=== PATIENT | male | born 1985 ===

== ENCOUNTER 2023-04-12 10:28 | Emergency (ER) | payer OTHER ==
[~2023-04-12] VITALS: Ht 177.8 cm; Wt 86.4 kg
[2023-04-12 10:34] VITALS: BP 124/79
== END 2023-04-12 14:37 | disposition left against medical advice (07) ==
LOC: ER 10:29
DX: F29 Unspecified psychosis not due to a substance or known physiological condition (principal); Z53.21 Procedure and treatment not carried out due to patient leaving prior to being seen by health care provider
CPT/HCPCS: 99281

== ENCOUNTER 2023-04-13 12:08 | Emergency (ER) | payer OTHER ==
[~2023-04-13] VITALS: Ht 177.8 cm; Wt 88.6 kg
[2023-04-13 12:43] LABS: BASOPHILS # (AUTO) 0.1 X10'3 (0-0.2); BASOPHILS % (AUTO) 0.6 % (0-1); EOSINOPHILS % (AUTO) 0.3 % (0-6); HEMATOCRIT 42.4 % (42.0-52.0); LYMPHOCYTES # (AUTO) 1.8 X10'3 (1.1-4.8); LYMPHOCYTES % (AUTO) 18.7 % (21-51); MEAN CORPUSCULAR HEMOGLOBIN 30.9 PG (27.0-31.0); MEAN CORPUSCULAR HGB CONC 33.1 g/dL (33.0-36.5); MEAN CORPUSCULAR VOLUME 93.4 FL (78-98); MEAN PLATELET VOLUME 6.5 FL (7.4-10.4); MONOCYTES # (AUTO) 0.7 X10'3 (0-0.9); MONOCYTES % (AUTO) 7.5 % (2-12); NEUTROPHILS # (AUTO) 7.2 X10'3 (1.8-7.7); NEUTROPHILS % (AUTO) 72.9 % (42-75); PLATELET COUNT 414 X10'3 (140-440); RED BLOOD COUNT 4.54 X10'6 (4.70-6.10); WHITE BLOOD COUNT 9.8 X10'3 (4.5-11.0)
[2023-04-13 12:57] LABS: ALANINE AMINOTRANSFERASE 22 U/L (12-78); ALBUMIN/GLOBULIN RATIO 0.9 (1.1-1.5); ALKALINE PHOSPHATASE 86 IU/L (46-116); ANION GAP 12 (8-16); ASPARTATE AMINO TRANSFERASE 31 U/L (10-37); BILIRUBIN,TOTAL 0.4 MG/DL (0.1-1.0); BLOOD UREA NITROGEN 10 MG/DL (7-18); BUN/CREATININE RATIO 15.9 (10.0-20.0); CALCIUM 8.4 MG/DL (8.5-10.1); CHLORIDE 107 MMOL/L (99-107); CREATININE 0.63 MG/DL (0.60-1.10); GLUCOSE 85 MG/DL (70-104); POTASSIUM 3.1 MMOL/L (3.5-5.1); SODIUM 140 MMOL/L (135-145); TOTAL CARBON DIOXIDE 20.9 MMOL/L (24-32); TOTAL PROTEIN 6.3 G/DL (6.4-8.2); eGFR > 90 ML/MIN
[2023-04-13 13:05] LABS: ETHANOL 0.134 GM/DL (0.0-0.010)
--- NOTE | 2023-04-13 13:25 | NUR ---
PT BG 70. RN PROVIDED LUNCH TRAY FOR PT.
[2023-04-13] MEDS ORDERED: POTASSIUM BICARB 20meq eff tab 20 MEQ TABLET.EFF PO STA (14:13)
--- NOTE | 2023-04-13 14:14 | NUR ---
RN NOTIFIED JACKELYN RM THAT PT K IS 3.1. PER JACKELYN SHE WILL PLACE ORDS.
[2023-04-13 14:49] LABS: CLARITY,URINE CLOUDY (Clear); COLOR,URINE YELLOW (Yellow); GLUCOSE, URINE NEGATIVE (Neg); KETONES,URINE 15 mg/dl (Neg); LEUKOCYTE ESTERASE ,URINE NEGATIVE (Neg); NITRITES, URINE NEGATIVE (Neg); OCCULT BLOOD,URINE NEGATIVE (Neg); PROTEIN,URINE NEGATIVE (Neg); UROBILINOGEN,URINE 0.2 E.U/dL (0.2-1.0)
[2023-04-13 14:52] LABS: URINE AMPHETAMINE SCREEN NEGATIVE (Neg); URINE BARBITUATE SCREEN NEGATIVE (Neg); URINE BENZODIAZEPINES SCREEN NEGATIVE (Neg); URINE CANNABINOID SCREEN POSITIVE (Neg); URINE COCAINE SCREEN NEGATIVE (Neg); URINE METHADONE SCREEN NEGATIVE (Neg); URINE OPIATE SCREEN NEGATIVE (Neg); URINE PHENCYCLIDINE SCREEN NEGATIVE (Neg)
[2023-04-13 15:04] LABS: CAL OXALATE CRYSTALS 4+ /HPF (NEGATIVE); MUCUS STRANDS MANY /LPF (Neg); SQUAMOUS EPITHELIAL CELL,UR FEW /LPF (FEW); UA COLLECTION TYPE VOIDED
[2023-04-13 15:05] LABS: BACTERIA,URINE FEW /HPF (Neg); HYALINE CASTS 0-3 /LPF (NEGATIVE); RBC,URINE 0-2 /HPF (0-2); WBC,URINE 0-4 /HPF (0-4)
--- NOTE | 2023-04-13 16:41 | NUR ---
Patient complaining of jittery. Patient also appears anxious. Blood sugar when checked was 105 mg/dl. I talked to ALISHA Jacobs about this and my concern that patient probably going through alcohol withdrawal at this time. She said she willl review the chart
--- NOTE | 2023-04-13 17:28 | NUR ---
Patient eating snack at this time. Patient reported feeling better and not jittery anymore at this time.
--- NOTE | 2023-04-13 18:30 | NUR ---
Assumed care of patient. Pt sitting up and eating dinner at change of shift.
--- NOTE | 2023-04-13 18:55 | NUR ---
Pt states he is here because he has been having suicidal thoughts with plan to run in traffic. Pt states he is able to be safe while he is here but doesnt know what he will do if he leaves.
--- NOTE | 2023-04-13 21:00 | NUR ---
Pt up requesting more water and returned to bed.
--- NOTE | 2023-04-13 22:00 | NUR ---
Pt appears to be sleeping on right side rr even and unlabored.
--- NOTE | 2023-04-14 01:39 | NUR ---
Pt is asleep, laying on his stomach rr even an unlabored
--- NOTE | 2023-04-14 03:46 | NUR ---
Pt is laying on his back asleep. RR 16
--- NOTE | 2023-04-14 04:23 | NUR ---
Pt is awake requesting snacks and more water and blankets. Pt provided with all and is sitting quietly
--- NOTE | 2023-04-14 04:51 | NUR ---
pt is laying in bed eyes closed rr 16
--- NOTE | 2023-04-14 06:36 | NUR ---
Patient ambulatory to BR, steady gait. No distress observed. Continue to monitor.
[2023-04-14] MEDS ORDERED: LORazepam 1 MG tablet PO ONE ×2 (07:55→14:30)
--- NOTE | 2023-04-14 08:08 | NUR ---
Patient appears very anxious. Patient given 2 mg Ativan and is eating breakfast. Continue to monitor.
--- NOTE | 2023-04-14 10:11 | NUR ---
Patient feeling better and reclining in bed awake. No distress observed. Continue to monitor.
--- NOTE | 2023-04-14 12:12 | NUR ---
Patient eating lunch. No distress observed. Continue to monitor.
--- NOTE | 2023-04-14 12:17 | NUR ---
FERNIE, Kacie, evaluating patient. No distress observed. Continue to monitor.
--- NOTE | 2023-04-14 13:39 | NUR ---
[facility] of his 5150 hold. Patient's friend does not believe it is a good plan for him and is afraid for him. Continue to monitor.
--- NOTE | 2023-04-14 15:22 | NUR ---
Patient laying in bed awake. No distress observed at this time. Continue to monitor.
--- NOTE | 2023-04-14 17:35 | NUR ---
Patient eating dinner. No distress observed. Continue to monitor.
[2023-04-14] MEDS ORDERED: TRAZ-256 PO (17:43)
[2023-04-14] MEDS ORDERED: ZOLM5TAB9 PO (17:43)
[2023-04-14] MEDS ORDERED: TELM1TAB4 PO (17:43)
[2023-04-14] MEDS ORDERED: IBUP-1984 PO (17:43)
[2023-04-14] MEDS ORDERED: LOSA-416 PO (17:43)
[2023-04-14] MEDS ORDERED: PROP40TA72 PO (17:43)
[2023-04-14] MEDS ORDERED: SUMAtriptan 25 MG tablet PO PRN ×2 (18:10→18:28)
[2023-04-14] MEDS: hydrOXYzine 25 MG tablet PO PRN (18:36)
[2023-04-14] MEDS: ibuprofen tablet 400 MG TABLET PO PRN (19:06)
--- NOTE | 2023-04-14 20:07 | NUR ---
Pt calm and cooperative, resting in bed. Denies MH symptoms at this time, requests motrin for chronic leg pain 04/11. Ibuprofen given with good effect.
[2023-04-14] MEDS ORDERED: traZODone 50mg tablet PO SCH (21:00)
[2023-04-14] MEDS ORDERED: potassium Cl 20 mEq SR tablet PO STA (22:57)
--- NOTE | 2023-04-14 23:05 | NUR ---
K+ level 3.1, KDUR replacement given 40meq.
--- NOTE | 2023-04-15 00:48 | NUR ---
Alisha PARSONS called, nurse to nurse done.
--- NOTE | 2023-04-15 00:53 | NUR ---
Alisha requesting TeraFirrma PCR test.
--- NOTE | 2023-04-15 02:44 | NUR ---
Pt appears to be sleeping.
--- NOTE | 2023-04-15 05:25 | NUR ---
pt appears to be sleeping.
[2023-04-15] MEDS: hydrOXYzine 25 MG tablet PO PRN ×2 (06:22→12:57)
[2023-04-15] MEDS: ibuprofen tablet 400 MG TABLET PO PRN ×2 (07:55→16:59)
[2023-04-15] MEDS ORDERED: propranolol 40mg tablet PO SCH (08:00)
[2023-04-15] MEDS ORDERED: losartan 50mg tablet PO SCH (08:00)
--- NOTE | 2023-04-15 10:23 | NUR ---
[facility] called and Tad requesting current VS, PCR results, and K+ level.
[2023-04-15 10:31] VITALS: BP 134/99
[2023-04-15] MEDS ORDERED: nicotine 21mg patch - 24 hr TD ONE (10:40)
--- NOTE | 2023-04-15 15:13 | NUR ---
CIWA score form completed. Score 3. Alisha PARSONS requesting. Form faxed to [facility].
--- NOTE | 2023-04-15 15:15 | NUR ---
Alisha accepted pt.
[2023-04-15] MEDS ORDERED: LORazepam 1 MG tablet PO ONE (16:55)
== END 2023-04-15 17:11 | disposition still patient (30) ==
LOC: ER 12:08
DX: R45.851 Suicidal ideations (principal); Z20.822 Contact with and (suspected) exposure to COVID-19; F10.129 Alcohol abuse with intoxication, unspecified; Z88.6 Allergy status to analgesic agent; Y90.9 Presence of alcohol in blood, level not specified
CPT/HCPCS: 36415; 80053; 80305; 80320; 81001; 82948; 84132; 84443; 85025; 87635; 87811; 99285; C9803; Q0177

== ENCOUNTER 2023-08-04 18:53 | Emergency (ER) | payer OTHER ==
[~2023-08-04] VITALS: Ht 180.3 cm; Wt 88.6 kg
[~2023-08-04 18:53] MED LIST: IBUP-1984 PO; LOSA-416 PO; PROP40TA72 PO; TRAZ-256 PO; ZOLM5TAB9 PO
--- NOTE | 2023-08-04 19:27 | NUR ---
AWARE OF NUMBNESS TO L SIDE.
[2023-08-04 19:30] LABS: BASOPHILS # (AUTO) 0.1 X10'3 (0-0.2); BASOPHILS % (AUTO) 1.1 % (0-1); EOSINOPHILS # (AUTO) 0.1 X10'3 (0-0.9); EOSINOPHILS % (AUTO) 1.5 % (0-6); HEMATOCRIT 39.1 % (42.0-52.0); HEMOGLOBIN 12.7 g/dl (14.0-17.9); LYMPHOCYTES # (AUTO) 2.2 X10'3 (1.1-4.8); LYMPHOCYTES % (AUTO) 26.4 % (21-51); MEAN CORPUSCULAR HEMOGLOBIN 30.4 PG (27.0-31.0); MEAN CORPUSCULAR HGB CONC 32.5 g/dL (33.0-36.5); MEAN CORPUSCULAR VOLUME 93.4 FL (78-98); MEAN PLATELET VOLUME 7.4 FL (7.4-10.4); MONOCYTES # (AUTO) 0.7 X10'3 (0-0.9); MONOCYTES % (AUTO) 8.2 % (2-12); NEUTROPHILS # (AUTO) 5.3 X10'3 (1.8-7.7); NEUTROPHILS % (AUTO) 62.8 % (42-75); PLATELET COUNT 509 X10'3 (140-440); RED BLOOD COUNT 4.19 X10'6 (4.70-6.10); WHITE BLOOD COUNT 8.5 X10'3 (4.5-11.0)
[2023-08-04 19:46] LABS: ALANINE AMINOTRANSFERASE 95 U/L (12-78); ALBUMIN/GLOBULIN RATIO 0.8 (1.1-1.5); ALKALINE PHOSPHATASE 135 IU/L (46-116); ANION GAP 8 (8-16); ASPARTATE AMINO TRANSFERASE 126 U/L (10-37); BILIRUBIN,TOTAL 0.4 MG/DL (0.1-1.0); BLOOD UREA NITROGEN 4 MG/DL (7-18); BUN/CREATININE RATIO 5.8 (10.0-20.0); CALCIUM 8.8 MG/DL (8.5-10.1); CHLORIDE 107 MMOL/L (99-107); CREATININE 0.69 MG/DL (0.60-1.10); GLUCOSE 106 MG/DL (70-104); POTASSIUM 3.1 MMOL/L (3.5-5.1); SODIUM 142 MMOL/L (135-145); TOTAL CARBON DIOXIDE 26.7 MMOL/L (24-32); TOTAL PROTEIN 6.9 G/DL (6.4-8.2); eCRCL 158 ML/MIN; eGFR > 90 ML/MIN
[2023-08-04 19:54] LABS: PRO BRAIN NATRIURETIC PEPTIDE 457 PG/ML (0-125)
[2023-08-04 20:15] VITALS: BP 140/85; PULSE 95; RESP 20; TEMP 98.7; O2SAT 98
[2023-08-05] MEDS ORDERED: iohexol 350MG/ML 100ml bottle IV ONE (01:06)
--- NOTE | 2023-08-05 01:18 | NUR ---
pt seen leaving the er by staff. informed
[2023-08-05 01:39] LABS: ETHANOL 178 MG/DL (<10)
== END 2023-08-05 01:19 | disposition left against medical advice (07) ==
LOC: ER 18:53
DX: R53.1 Weakness (principal); R20.0 Anesthesia of skin
CPT/HCPCS: 36415; 80053; 80320; 82948; 83880; 84484; 85025; 93005; 99284; J3490; Q9967

== ENCOUNTER 2023-08-21 21:16 | Emergency (ER) | payer OTHER ==
[~2023-08-21] VITALS: Ht 180.3 cm; Wt 90.9 kg
--- NOTE | 2023-08-21 21:47 | NUR ---
PT VERY ERRRATIC/IN PAIN IN TRIAGE. PROVIDER WAS MADE AWARE NAD GAVE VERBAL ORDERS FOR MEDICATIONS. Addendum: 08/21/23 at 2207 by [email or web address] PT VERY ERRRATIC/IN PAIN IN TRIAGE. PROVIDER WAS MADE AWARE AND GAVE VERBAL ORDERS FOR MEDICATIONS.
[2023-08-21 21:49] VITALS: BP 152/78; PULSE 144; RESP 26; TEMP 97.2; O2SAT 94
[2023-08-21] MEDS ORDERED: ketorolac tromethamine 15mg/ml inj. IM ONE (21:50)
[2023-08-21] MEDS ORDERED: LORazepam 2 mg/ml vial IM ONE (21:50)
== END 2023-08-22 02:42 | disposition left against medical advice (07) ==
LOC: ER 21:17
DX: K13.79 Other lesions of oral mucosa (principal); Z53.21 Procedure and treatment not carried out due to patient leaving prior to being seen by health care provider
CPT/HCPCS: 96372; 99281; J1885; J2060